=== PATIENT | female | born 1960 | race American Indian/Alaskan Native ===

== ENCOUNTER 2017-08-21 06:13 | Day surgery (SDC) | payer OTHER ==
[~2017-08-21 06:13] MED LIST: ADRENALIN IV ONE; NACL 0.9% IR ONE
[2017-08-21] MEDS ORDERED: ANCEF/STERILE WATER 2 GM/20 ML IV NR (07:00)
--- NOTE | 2017-08-21 08:10 | Anesthesia Consultation ---
Anesthesia Consult and Med Hx Date of service: 08/21/17 - Airway Anesthetic Teeth Evaluation: Good ROM Head & Neck: Adequate Mental/Hyoid Distance: Adequate Mallampati Class: Class II Intubation Access Assessment: Probably Good - Pulmonary Exam CTA: Yes - Cardiac Exam Cardiac Exam: RRR - Pre-Operative Health Status ASA Pre-Surgery Classification: ASA1 Proposed Anesthetic Plan: General - Pulmonary Hx Smoking: No Hx Sleep Apnea: No (SOLE PRE SCREEN LOW RISK) - Cardiovascular System Hx Hypertension: No - Central Nervous System Hx Back Pain: Yes (NECK PAIN) - Other Systems Hx Cancer: No
--- NOTE | 2017-08-21 08:10 | Anesthesia Day of Surgery ---
Anesthesia Day of Surgery - Day of Surgery Patient Examined: Yes Patient H&P Reviewed: Yes Patient is NPO: Yes
[2017-08-21] MEDS ORDERED: ADRENALIN ONE ×2 (08:59)
[2017-08-21] MEDS ORDERED: NACL 0.9% 1000 ML 1,000 ML IV SCH (09:00)
[2017-08-21] MEDS ORDERED: PEPCID PO NR (09:00)
[2017-08-21] MEDS ORDERED: NEURONTIN PO NR (09:00)
[2017-08-21] MEDS ORDERED: VERSED IV NR (09:00)
[2017-08-21] MEDS ORDERED: MARCAINE 0.5% 30 ML INFILTRATI ONE (09:31)
[2017-08-21] MEDS ORDERED: NACL 0.9% IR ONE (09:58)
[2017-08-21] MEDS ORDERED: ADRENALIN IV ONE (09:58)
[2017-08-21] MEDS ORDERED: SUBLIMAZE ONE (10:06)
[2017-08-21] MEDS ORDERED: DIPRIVAN 10 MG/ML IV ONE (10:07)
[2017-08-21] MEDS ORDERED: ePHEDrine SULFATE ONE (10:25)
[2017-08-21] MEDS ORDERED: ZOFRAN ONE (11:00)
[2017-08-21] MEDS ORDERED: DECADRON ONE (11:01)
--- NOTE | 2017-08-21 11:36 | Short Stay Summary ---
Short Stay Documentation Date of service: 08/21/17 - History H&P: obtained from office - Allergies and Medications Current Medications: Allergies No Known Allergies Allergy (Verified 08/08/17 09:31) Home Medications Medication Instructions Recorded Confirmed Last Taken Type Cholecalciferol (Vitamin D3) 10,000 unit PO DAILY 08/08/17 08/21/17 08/07/17 History [Vitamin D3 10,000 unit] Garlic [Odor Free Garlic] 100 mg PO DAILY 08/08/17 08/21/17 08/07/17 History Multivit-Min/FA/Lycopen/Lutein 1 each PO DAILY 08/08/17 08/21/17 08/07/17 History [Centrum Silver Tablet] Naproxen Sodium [Aleve] 220 mg PO PRN PRN 08/08/17 08/21/17 08/07/17 History [facility]-3 Fatty Acids/Fish Oil [Fish 1,000 mg PO DAILY 08/08/17 08/21/17 07/31/17 History Oil] Active Medications Sodium Chloride (Nacl 0.9% 1000 Ml) 1,000 mls @ 100 mls/hr IV DIRECT BERINCE Last Admin: 08/21/17 08:21 Dose: 100 mls/hr Midazolam HCl (Versed) 2 mg IV PREOP NR Stop: 08/21/17 23:59 Last Admin: 08/21/17 09:30 Dose: 2 mg - Brief post op/procedure progress note Date of procedure: 08/21/17 Pre-op diagnosis: right shoulder pain, adhesive capsulitis, rotator cuff tear Post-op diagnosis: other (right shoulder AC joint arthritis, adhesive capsulitis , extensive subacromial bursitis) Procedure: right shoulder arthroscopy, subacromial decompression, distal clavicle excision , debriedment extensive subacromial bursitis, lysis of adhesions, manipulation under anesthesia Anesthesia: GETA Findings: as above Surgeon: DMITRIY KIRKLAND Director Learning And Development: EL YEUNG III Estimated blood loss: minimal Pathology: none Condition: stable - Hospital course Hospital course: no perioperative complications - Disposition Condition at discharge: Good Disposition: DC-01 TO HOME OR SELFCARE Short Stay Discharge Plan Follow up with: RAYMOND SALAS MD [Primary Care Provider] - 7 Days
--- NOTE | 2017-08-21 12:17 | Post Anesthesia Evaluation ---
- Post Anesthesia Evaluation Patient Participated: Yes Airway Patent: Yes Stable Respiratory Function: Yes Nausea/Vomiting: No Temp > 96.8F: Yes Pain Manageable: Yes Adequeate Hydration: Yes Anesthesia Complications: No Patient on Ventilator: No
[2017-08-21 12:46] VITALS: BP 126/79
--- NOTE | 2017-08-21 15:33 | Operative Report ---
PREOPERATIVE DIAGNOSES: Persistent right shoulder pain, acromioclavicular joint arthritis, possible rotator cuff tear, adhesive capsulitis. POSTOPERATIVE DIAGNOSES: Persistent right shoulder pain, acromioclavicular joint arthritic changes with inferior spurs of distal clavicle and acromion causing significant impingement upon rotator cuff, extensive subacromial bursitis, partial thickness bursal-sided rotator cuff tear encompassing less than 5% in width of the supraspinatus tendon, adhesive capsulitis. PROCEDURES: Right shoulder arthroscopy, subacromial decompression, distal clavicle excision, debridement of extensive subacromial bursitis, lysis of adhesions, manipulation under anesthesia, debridement of partial thickness rotator cuff tear. SURGEON: Alverto Brandon M.D. [employer] MILL PROGRAMMER: Irvin Osborne M.D. PREOPERATIVE ANTIBIOTICS: Ancef 2 g IV within 1 hour of skin incision. DVT PROPHYLAXIS: Open-toe, thigh-high compression stockings and SCD pumps to bilateral lower extremities. ANESTHESIA: General plus interscalene block to the operative right upper extremity. OPERATIVE COMPLICATIONS: None. OPERATIVE HISTORY AND PHYSICAL: This is a 57-year-old female who has had persistent progressively worsening right shoulder pain, which has failed to improve despite extensive nonoperative treatment. The pain markedly limits her day-to-day activities. MRI scan was performed, which was positive for acromioclavicular arthritic change as well as partial thickness rotator cuff tear. The patient's MRI findings and diagnosis were discussed at length making sure that the patient understood that diagnosis and all of her questions were answered. We then discussed treatment alternatives of surgical and nonsurgical including risks and benefits of both. After a long lengthy discussion, the patient opted to proceed with operative intervention. This will entail a right shoulder arthroscopy, subacromial decompression, distal clavicle excision, possible rotator cuff repair, lysis of adhesion, manipulation under anesthesia and surgery as indicated, the risks of which were discussed to include but not exclusive of infection, blood loss, nerve damage, loss of range of motion, and persistent pain. Again, the patient understood. All of her questions were answered. She wished to proceed with operative intervention. DESCRIPTION OF PROCEDURE: The patient was seen in the preoperative holding room area at which point informed consent was reviewed and appropriate right upper extremity was identified and then marked. Anesthesia then performed an interscalene block in the right upper extremity. After confirmation of adequate anesthesia of the right upper extremity, the patient was taken back to the operating room and placed supine on the standard operating room table at which point general anesthesia was administered and endotracheal tube was inserted. After confirmation of adequate general anesthesia and checking proper placement of endotracheal tube, we then made sure that all bony prominences were well padded and that there were no wrinkles in the compression stockings on bilateral lower extremities and SCD pumps applied to bilateral lower extremities. A pillow was placed beneath the posterior aspect of bilateral lower extremities and placed in slight flexion of the hips and knees, making sure the popliteal fossa was free and clear. A tourniquet was applied to the heels. The patient was then sat in the beachchair position using the beachchair positioner, which was already in place, and the head was secured in a nice neutral position. Once in that position, the well left arm was placed in neutral position at the patient's side with aid of the well-arm hyas. Right upper extremity was then examined under anesthesia. The patient had forward flexion of 160, abduction of 160, external rotation of 60 degrees, and internal rotation of 50 degrees. Upon examination under anesthesia, the right upper extremity was then prepped and draped in the usual sterile fashion. After prepping and draping, a time-out was called and appropriate right upper extremity was identified which again had been marked in the preoperative holding area. We began the procedure by first making a standard posterior portal with #15 blade. Once the portal was established, a cannula with blunt trocar was inserted into the intraarticular aspect of the glenohumeral joint. This went without difficulty or damage to articular cartilage. Once in place, the arthroscopic cannula had been placed in the anterior aspect of the shoulder joint to establish an anterior portal by first inserting an 18-gauge spinal needle in the subscapularis and biceps tendon under direct arthroscopic visualization. Once confirmed to be appropriately positioned, a 15 blade was then used to establish an anterior portal. Once the portal was established, a blunt trocar was inserted to widen the portal site followed with an arthroscopic probe. We began our diagnostic arthroscopy in the anterior aspect of shoulder joint. The patient had a normal subscapularis tendon and a middle glenohumeral ligament. There was some mild degenerative wear at the junction of the anterior and superior labrum adjacent to the biceps anchor. This was gently debrided using 4.0 meniscal shaver. There was no instability of the anterior, superior, or posterior labrum. The biceps tendon was seen to be intact. Next, the shoulder was in its normal relation. There was normal articular cartilage of the glenohumeral joint. There was a normal bare area without Hill-Sachs lesion. There were no loose bodies in the axillary recess. Inspection of the articular side of the rotator cuff showed to be intact and stable when probed. Following this, the arthroscopic pump was turned off to make sure there was good hemostasis. Once this was confirmed, extraneous fluid was suctioned from the glenohumeral joint using the arthroscopic cannula. Following this, all the arthroscopic instrumentation was removed and then placed in the subacromial space. Once in the subacromial space, we saw that there was severe extensive subchordal bursitis, which was gently debrided using 4.0 meniscal shaver. Hemostasis was achieved with Arthrocare ablation wand. The arm was placed through full range of motion. On attempted range of motion, we saw that the patient continued to have significant adhesions. Therefore, gentle manipulation under anesthesia was performed. Once completed, the patient now had full range of motion with forward flexion 180, abduction 180, external rotation of 60 degrees, and internal rotation of 60 degrees. The arthroscopic cannula was then placed back into the subacromial space. Once in the subacromial space, the arm was again placed through full range of motion under direct arthroscopic visualization. We saw there was severe impingement of the rotator cuff from the undersurface of the acromion or the distal clavicle. Following this, the soft tissue was removed from undersurface of the acromion using Arthrocare ablation wand and then using the 4.0 hooded barrel bur, we carried out the subacromial decompression from inferior, superior, posterior and to make sure not to leave any residual anterior hook. We turned out attention to the distal clavicle which was also seen to be arthritic. Using 4.0 hooded barrel bur, we carried out the distal clavicle excision to a depth of approximately 6 mm. Once completed, the arm was again placed through full range of motion and we saw that there was no further impingement of the rotator cuff upon the undersurface of the acromion or distal clavicle. Following this, we inspected the bursal side of the rotator cuff. It was seen to have a small partial tear encompassing less than 5% of the width of the tendon. This was gently debrided using 4.0 meniscal shaver, and once completed, the arm was again placed through full range of motion. We saw there was no further impingement upon the rotator cuff. Following this, the arthroscopic pump turned off to make sure there was good hemostasis. Once this was confirmed, the extraneous fluid was suctioned from the shoulder using arthroscopic cannula. Following this, all the arthroscopic instrumentation was removed. The 3 portal sites were then closed with 3-0 nylon in a simple fashion. Adaptic, 4 x 4, ABD, paper tape, small abduction sling, and a Donjoy Cryo/Cuff blanket was applied. The patient was sat down from the beachchair to supine position, awakened from general anesthesia without complications, and taken to recovery room in stable condition. Standard postoperative orders were written. JOB# [id number] DELMIS/CAYLA
== END 2017-08-21 06:14 | disposition home or self-care (01) ==
LOC: OR 06:13
PROVIDERS: ATTEND Orthopaedic Surgery
DX: M75.01 Adhesive capsulitis of right shoulder (principal); M75.51 Bursitis of right shoulder; S46.011A Strain of muscle(s) and tendon(s) of the rotator cuff of right shoulder, initial encounter; I10 Essential (primary) hypertension; X58.XXXA Exposure to other specified factors, initial encounter; Y93.89 Activity, other specified; Y92.89 Other specified places as the place of occurrence of the external cause; Y99.8 Other external cause status
CPT/HCPCS: 29822; 29824; 29826; A4217; J0171; J0690; J1100; J2250; J2405; J2704; J3010; J7030; L1830